=== PATIENT | male | born 1950 | race Caucasian/White ===

== ENCOUNTER 2023-02-23 09:07 | Observation (INO) ==
[~2023-02-23 09:07] MED LIST: Ampicillin ADVAN 2 GM in NS 0.9% 100 ML 100 ML IVPB ONE; Buffered Lidocaine 1% SYRIN 1 ml INTRADERM ONE; Gentamicin ADULT 440 MG in NS 0.9% 100 ml BAG 100 ML IVPB ONE; Lactated Ringers 1000 ml BAG 1,000 ML IV SCH; Lidocaine 2% PF 5 ML VIAL ONE; Midazolam 2 mg/2 ml VIAL 1 mg/ml 2 ml VIAL (2 mg) ONE; NS 0.9% 1000 ml BAG 1,000 ML IV SCH; Naloxone 0.4 mg VIAL 0.4 mg/ml 1 ml VIAL IV PRN; Phenylephrine 40 mcg/mL 10mL (400mcg) SYRINGE ONE; Propofol 10 MG/ML 20 ML BTL ONE; Sodium Citrate/Citric Acid LIQ 15 ML UDC ONE; Sodium Citrate/Citric Acid LIQ 15 ML UDC PO ONE; fentaNYL 100 mcg/2 ml 50 MCG/ML VIAL ONE
[2023-02-23] MEDS ORDERED: Rocuronium 50 mg VIAL 10 mg/ml 5 ml VIAL (50 mg) ONE (09:19)
[2023-02-23] MEDS ORDERED: Ondansetron 4 mg VIAL 2 MG/ML 2 ml VIAL IV PRN (09:39)
[2023-02-23 09:50] LABS: Rapid COVID-19 Molecular Undetected (Undetected)
[2023-02-23] MEDS ORDERED: Dexamethasone IV 4 MG/ML VIAL 1 ml VIAL ONE (10:23)
[2023-02-23] MEDS ORDERED: Ondansetron 4 mg VIAL 2 MG/ML 2 ml VIAL ONE (10:23)
[2023-02-23] MEDS ORDERED: Furosemide 20 mg/2 ml IV VIAL ONE (10:55)
[2023-02-23] MEDS ORDERED: fentaNYL 100 mcg/2 ml 50 MCG/ML VIAL ONE (11:31)
[2023-02-23] MEDS: fentaNYL 100 mcg/2 ml 50 MCG/ML VIAL IV PRN ×3 (11:33→12:20)
[2023-02-23] MEDS: NS 0.9% 1000 ml BAG 1,000 ML IV SCH ×2 (13:41→21:57)
[2023-02-23] MEDS ORDERED: Lidocaine 2% JELLY 6 ML Topical TOPICAL ONE (13:55)
[2023-02-23] MEDS: CMC:Venlafaxine 25 mg TAB (NF) PO SCH (14:13)
[2023-02-23] MEDS: Neosporin TOPICAL OINT PACKET TOPICAL SCH ×3 (14:14→21:51)
[2023-02-23] MEDS: Magnesium Hydroxide LIQ 30 ML UDC PO SCH (21:53)
[2023-02-24] MEDS ORDERED: CMC:Venlafaxine 25 mg TAB (NF) PO SCH (09:00)
[2023-02-24] MEDS ORDERED: Pneumococcal Vac 23-Polyvalent IM ONE (09:00)
[2023-02-24] MEDS: Magnesium Hydroxide LIQ 30 ML UDC PO SCH (09:35)
[2023-02-24] MEDS: Neosporin TOPICAL OINT PACKET TOPICAL SCH (09:37)
[2023-02-24 10:12] VITALS: BP 125/81
[2023-02-24] MEDS: CMC:Venlafaxine 25 mg TAB (NF) PO SCH (12:46)
[2023-02-24 14:51] LABS: Hepatitis C Antibody Negative (Negative)
== END 2023-02-24 16:05 | disposition home or self-care (01) ==
LOC: OR 09:07 → SSU 09:07
PROVIDERS: ADMIT Urology; ATTEND Urology

== ENCOUNTER 2023-07-22 19:54 | Inpatient (IN) ==
[2023-07-23] MEDS ORDERED: Al Hydrox/Mg Hydrox/Simet LIQ 30 ML UDC PO PRN (01:53)
[2023-07-23] MEDS: Albuterol HFA INHALER 8 gm MDI INH PRN (05:34)
[2023-07-23] MEDS: CMCS: Venlafaxine 25 mg TAB (NF) PO SCH (08:47)
[2023-07-23] MEDS: CMCS: Solifenacin 5 mg TAB (NF) PO SCH (08:48)
[2023-07-23] MEDS: Potassium Chlor 20 meq TAB.ER PO SCH (08:51)
[2023-07-23] MEDS: Vitamin THERAPEUTIC TAB PO SCH (08:53)
[2023-07-23] MEDS: diazePAM INJ CARPUJECT 5 MG/ML SYRINGE IV PRN (11:31)
[2023-07-23] MEDS: Furosemide 40 mg/4 ml IV VIAL IV SLOW PU ONE (11:44)
[2023-07-23 11:59] LABS: ABS Eosinophils 0.2 10^3/uL (0.0-0.5); ABS Lymphocytes 2.1 10^3/uL (1.0-4.8); ABS Neutrophils 7.5 10^3/uL (1.5-7.6); ABS Nucleated RBC 0.01 10^3/ul; Eosinophil % 1.8 %; Hematocrit 38.8 % (38-53); Hemoglobin 12.9 g/dL (13.2-16.3); Lymphocyte % 19.5 %; Mean Corpuscular Hemoglobin 31.3 pg (27-33); Mean Corpuscular Hgb Conc 33.3 g/dL (31-36); Mean Corpuscular Volume 93.9 fL (80-97); Mean Platelet Volume 7.3 fL (7.5-11.2); Nucleated Red Blood Cells % 0.1 %/100WBC (0.0-0.8); Platelet Count 261 10^3/uL (150-450); Red Blood Count 4.13 10^6/uL (4.06-5.63); Red Cell Distribution Width 14.2 % (12-17); White Blood Count 10.8 10^3/uL (3.6-10.2)
[2023-07-23 12:19] LABS: Albumin 3.6 g/dL (3.2-5.2); Albumin/Globulin Ratio 1.4 (1-3); Calcium 8.2 mg/dL (8.6-10.3); Creatinine, Serum 1.1 mg/dL (0.67-1.17); Globulin 2.5 g/dL (2-4); Potassium 3.7 mmol/L (3.5-5.0); Total Bilirubin 0.4 mg/dL (0.2-1.0); Total Protein 6.1 g/dL (6.4-8.9); eGFR CKD-EPI 70.4 (>60)
[2023-07-23] MEDS ORDERED: Dextrose 50% Syringe 50 ml 25 GM/50 ML SYRINGE IV PUSH PRN (12:35)
[2023-07-23 17:33] LABS: PCO2 Arterial 37 mmHg (35-45); PO2 Arterial 83 mmHg (80-100)
[2023-07-24 08:01] LABS: ABS Basophils 0.1 10^3/uL (0.0-0.1); ABS Eosinophils 0.4 10^3/uL (0.0-0.5); ABS Lymphocytes 2.4 10^3/uL (1.0-4.8); ABS Monocytes 0.9 10^3/uL (0.0-1.1); ABS Neutrophils 6.9 10^3/uL (1.5-7.6); ABS Nucleated RBC 0.02 10^3/ul; Eosinophil % 3.8 %; Hematocrit 38.3 % (38-53); Lymphocyte % 22.5 %; Mean Corpuscular Hemoglobin 31.6 pg (27-33); Mean Corpuscular Hgb Conc 33.8 g/dL (31-36); Mean Corpuscular Volume 93.4 fL (80-97); Mean Platelet Volume 7.7 fL (7.5-11.2); Nucleated Red Blood Cells % 0.1 %/100WBC (0.0-0.8); Platelet Count 274 10^3/uL (150-450); Red Cell Distribution Width 14.2 % (12-17); White Blood Count 10.6 10^3/uL (3.6-10.2)
[2023-07-24 08:11] LABS: Calcium 7.9 mg/dL (8.6-10.3); Creatinine, Serum 1.05 mg/dL (0.67-1.17); Potassium 3.6 mmol/L (3.5-5.0); eGFR CKD-EPI 74.5 (>60)
[2023-07-24 16:14] LABS: Urine Appearance Clear; Urine Bilirubin Negative (Negative); Urine Blood Negative (Negative); Urine Color Light-Yellow; Urine Glucose Negative (Negative); Urine Ketones Negative (Negative); Urine Nitrite Negative (Negative); Urine Protein Negative (Negative); Urine Specific Gravity 1.015 (1.002-1.030); Urine Urobilinogen Negative (Negative); Urine pH 6.5 (5.0-8.0)
[2023-07-25] MEDS: HYDROcodone/ACETAMIN 5/325 mg TAB PO PRN (02:59)
[2023-07-25 06:51] LABS: ABS Basophils 0.3 10^3/uL (0.0-0.1); ABS Eosinophils 0.5 10^3/uL (0.0-0.5); ABS Lymphocytes 2.1 10^3/uL (1.0-4.8); ABS Monocytes 0.6 10^3/uL (0.0-1.1); ABS Neutrophils 7.2 10^3/uL (1.5-7.6); Eosinophil % 4.3 %; Hematocrit 38.4 % (38-53); Lymphocyte % 19.7 %; Mean Corpuscular Hemoglobin 31.5 pg (27-33); Mean Corpuscular Hgb Conc 33.9 g/dL (31-36); Mean Corpuscular Volume 93.1 fL (80-97); Mean Platelet Volume 7.1 fL (7.5-11.2); Platelet Count 275 10^3/uL (150-450); Red Blood Count 4.13 10^6/uL (4.06-5.63); Red Cell Distribution Width 13.9 % (12-17); White Blood Count 10.7 10^3/uL (3.6-10.2)
[2023-07-25 07:18] LABS: Calcium 8.2 mg/dL (8.6-10.3); Creatinine, Serum 0.94 mg/dL (0.67-1.17); Magnesium 2.1 mg/dL (1.9-2.7); Potassium 3.7 mmol/L (3.5-5.0); eGFR CKD-EPI 85.1 (>60)
[2023-07-25 11:23] LABS: PCO2 Arterial 41 mmHg (35-45); PO2 Arterial 70 mmHg (80-100)
[2023-07-26 10:02] VITALS: BP 137/80
== END 2023-07-26 14:32 | disposition home or self-care (01) | DRG 291 ==
LOC: ED 19:54 → EDHOLD 07-23 01:20 → BSU 07-23 01:38 → MED 07-23 09:05
PROVIDERS: ADMIT Psychiatry & Neurology Psychiatry; ATTEND Student in an Organized Health Care Education/Training Program